=== PATIENT | male | born 1985 | race Caucasian/White ===

== ENCOUNTER 2019-12-22 11:34 | Emergency (ER) | payer BC, SELFPAY ==
[2019-12-22 11:44] VITALS: BP 146/88; PULSE 72; RESP 16; TEMP 36.7; O2SAT 99
--- NOTE | 2019-12-22 12:03 | ED.NECK ---
HPI - Neck Pain/Injury General Chief Complaint: Neck Pain/Injury Stated Complaint: pain on neck Time Seen by Provider: 12/22/19 11:49 Source: patient and RN notes reviewed Mode of arrival: ambulatory Limitations: no limitations History of Present Illness HPI Narrative: Patient presents today with a 3-day history of left neck pain. Denies any injury or recent illness. Pain is not worsening since onset. Occasionally the pain worsens with movement of the neck. He has tried no medication for symptoms prior to arrival. MD complaint: neck pain Related Data Home Medications Medication Instructions Recorded Confirmed No Home Medications 12/22/19 12/22/19 Allergies Allergy/AdvReac Type Severity Reaction Status Date / Time No Known Allergies Allergy Verified 12/22/19 11:55 Review of Systems Review of Systems: Narrative: CONSTITUTIONAL: Denies body aches, fever, chills, or sweats. EYES: Denies visual changes, redness, or discharge. ENT: Denies rhinorrhea, congestion, sore throat, or otalgia. CARDIOVASCULAR: Denies chest pain, palpitations, or edema. RESPIRATORY: Denies cough or dyspnea. GASTROINTESTINAL: Denies abdominal pain, nausea, vomiting, or diarrhea. GENITOURINARY: Denies dysuria or hematuria. SKIN: Denies rash, itching, or wounds. MUSCULOSKELETAL: Denies back pain, joint pain, or myalgia.+Left neck pain NEUROLOGIC: Denies headache, numbness, tingling, or weakness. PSYCH: Denies depression or anxiety. PMFSH Comments At time of signature, I have reviewed and agree with nursing past medical, surgical, social and family history unless otherwise noted. Please see nursing chart for further information. There is no relevant family history pertinent to the presenting complaint Exam Narrative: Exam Narrative: GENERAL: Well-appearing, well-nourished, and in no acute distress. HEAD: Normocephalic, atraumatic. EYES: EOMI. No redness or drainage. Conjunctivae normal. ENT: Mucous membranes pink and moist. Nares clear. Throat normal. Uvula midline. NECK: Normal AROM. Supple. Left anterior cervical chain lymphadenopathy and tenderness. CHEST: No respiratory distress. EXTREMITIES: Normal range of motion. No edema. SKIN: Warm, dry, no rash. Capillary refill normal. Normal skin turgor. NEURO: No focal deficits. Alert and oriented x3. Gait steady. PSYCH: Normal affect. No signs of depression or anxiety. Course Vital Signs Vital signs: Vital Signs Temperature 98.0 F 12/22/19 11:44 Pulse Rate 72 12/22/19 11:44 Respiratory Rate 16 12/22/19 11:44 Blood Pressure 146/88 H 12/22/19 11:44 Pulse Oximetry 99 12/22/19 11:44 Temperature 98.0 F 12/22/19 11:44 Pulse Rate 72 12/22/19 11:44 Respiratory Rate 16 12/22/19 11:44 Blood Pressure 146/88 H 12/22/19 11:44 Pulse Oximetry 99 12/22/19 11:44 Reviewed. Pt has been instructed to follow up with his PCP regarding his elevated blood pressure today. MDM - Neck Pain/Injury Differential Diagnosis Differential diagnosis: Likely strain of neck muscle and other (Lymphadenitis, thyroid nodule) Critical Care Time Critical Care Time Critical Care Time: No Discharge Plan Discharge Clinical Impression: Cervical lymphadenitis Patient Disposition: Home, Self-Care Condition: Stable Instructions: Lymphadenopathy (ED) Additional Instructions: You have a swollen lymph node. This will likely resolve on its own. Follow up with your PCP with any new or worsening symptoms. Take Tylenol or ibuprofen at home for pain. Your blood pressure was elevated above 120/80 today at Urgent Care. This puts you above the threshold for follow up. Please schedule a followup visit with your personal physician as soon as possible, for further evaluation and treatment. Even blood pressure exceeding 120/80 may indicate pre-hypertension. Patient Language: Faroese Prescriptions: No Action No Home Medications RF: 0 Follow-up/Referrals:
== END 2019-12-22 12:13 | disposition home or self-care (01) ==
PROVIDERS: Emergency Provider Nurse Practitioner
DX: I88.9 Nonspecific lymphadenitis, unspecified (principal)
CPT/HCPCS: 99211; G0463

== ENCOUNTER 2021-10-24 13:34 | Emergency (ER) | payer BC, SELFPAY ==
--- NOTE | 2021-10-24 13:39 | ED.HA ---
HPI - Headache General Chief Complaint: Headache Stated Complaint: Neck Pain/ Headache Time Seen by Provider: 10/24/21 13:45 Source: patient Mode of arrival: ambulatory Limitations: no limitations History of Present Illness HPI Narrative: is a 36-year-old male patient presenting to the clinic today with complaints of neck pain/ headache. He reports this only occurs when he is exerting. For example he was bench pressing and had a pressure like pain to the back of his head/top of his cervical spine. Is also reported that when he is having an orgasm he gets the same pain. He denies any other symptoms such as nausea vomiting, visual changes, chest pain, or shortness of breath. Also denies any dizziness. No history of hypertension-states he has been borderline in the past. Has taken his blood pressure after the symptoms prior and states that it was 130's over high 80s. Related Data Home Medications Medication Instructions Recorded Confirmed No Home Medications 12/22/19 12/22/19 Allergies Allergy/AdvReac Type Severity Reaction Status Date / Time No Known Allergies Allergy Verified 12/22/19 11:55 Review of Systems Review of Systems: Pertinent positives per HPI. Patient denies any fever, chills, rash, visual changes, dizziness, cough, runny nose, sore throat, shortness of breath, chest pain, palpitations, nausea, vomiting, diarrhea, constipation, abdominal pain, or any urinary issues. PMFSH Comments At the time of my signature, I reviewed and agree with the nursing past medical, surgical, social, and family history. There is no relevant family history pertinent to the patient complaint. Exam Narrative: General: Well-developed, well nourished, in no apparent distress Head: Normocephalic, atraumatic, nontender to palpation over occipital lobe, no pain to palpation over the cervical spine or musculature. Eyes: Pupils equally round and reactive to light bilaterally, EOM intact, sclera and conjunctive clear, no discharge, lids normal, tongue midline, uvula midline-even rise and fall Ears: TMs intact and clear, ear canals clear, no drainage, grossly hearing normal. Nose: Nares patent, no discharge, no inflammation, no sinus tenderness. Mouth: Oropharynx without lesions or masses, good dentition, MMM. Neck: Supple, trachea midline, no enlargement of anterior or posterior cervical nodes, no thyroid masses or goiter palpable. Cardio: Regular rate and rhythm, s1 and s2 normal, no murmur appreciated. Resp: Clear to auscultation bilaterally anteriorly and posteriorly, no rhonchi, rales, wheezing or rubs Neuro: Cranial nerves 1-12 intact, muscle strength equal and strong in all extremities, hand grasps strong bilaterally, normal steady gait, reflexes 2+ bilaterally, Romberg test negative. Course Course Emergency Course: Portions of this record may have been created with voice recognition software. Level of Care: Express Care Visit Vital Signs Vital signs: Vital signs reviewed MDM - Headache MDM Narrative Medical decision making narrative: In this case this sounds like an exertional headache or potentially a vascular headache. Patient reports that he only has the symptoms with exertion for example having orgasm or lifting heavy weights. Is neurologically intact today in the clinic and denies headache. He has a steady gait and has appropriate range of motion in all extremities. He does have some ptosis to the left eye however this is normal for him. He has strong bilateral hand grasp, negative for any extremity weakness, no facial droop, slurred speech. Differential Diagnosis Differential diagnosis: Likely migraine, tension headache and other Discharge Plan Discharge Clinical Impression: Headache Qualifiers: Headache type: primary exertional headache Qualified Code(s): G44.84 - Primary exertional headache Patient Disposition: Home, Self-Care Condition: Stable Instructions: Acute Headache (ED) Mark
[2021-10-24 13:44] VITALS: BP 134/75; PULSE 70; RESP 16; TEMP 37.2; O2SAT 100
== END 2021-10-24 13:54 | disposition home or self-care (01) ==
PROVIDERS: Emergency Provider Nurse Practitioner Family
DX: G44.84 Primary exertional headache (principal)
CPT/HCPCS: 99213; G0463

== ENCOUNTER 2022-12-19 12:34 | Emergency (ER) | payer BC, SELFPAY ==
[2022-12-19 12:42] VITALS: BP 152/84; PULSE 72; RESP 18; TEMP 36.7; O2SAT 98
--- NOTE | 2022-12-19 13:03 | ED.URI ---
HPI - URI/Sore Throat General Chief Complaint: Upper Respiratory Infection Stated Complaint: cold / chest congestion Source: patient and RN notes reviewed History of Present Illness HPI Narrative: 37 yo M presents to urgent care with complaints of a cough. Pt states last , he developed a sore throat that lasted a couple days and it resolved on its own. Pt states on Saturday, he felt terrible with congestion, bilateral ear pressure, and cough. Pt states he had body aches and lethargy. Pt states he laid in bed until today. Pt reports his congestion and most of his symptoms are improving but his boss wanted him to be checked out. Pt reports SOB due to his congestion that is improving. Reports midsternal burning a few days ago. Denies any sore throat today, ear pain, abdominal pain, or vomiting. Related Data Allergies Allergy/AdvReac Type Severity Reaction Status Date / Time No Known Allergies Allergy Verified 12/19/22 13:05 Review of Systems Review of Systems: Pertinent positives and pertinent negatives per HPI. PMFSH Comments At the time of my signature, I reviewed and agree with the nursing past medical, surgical, social, and family history. There is no relevant family history pertinent to the patient complaint. Exam Narrative: GENERAL: This is a well-nourished, well-developed patient, in no apparent distress. HEAD: normocephalic, atraumatic. EYES: Sclera clear/white. Vision is grossly intact. EARS: External ears normal, auditory canals clear and without drainage, TMs normal without perforation. Hearing grossly intact. NOSE: External nose normal with no obvious nasal discharge, nares without redness, no rhinorrhea. THROAT: Mucous membranes moist, posterior pharynx clear. NECK: Neck supple, non-tender without lymphadenopathy, masses or thyromegaly. CARDIOVASCULAR: Regular rate and rhythm without murmurs, gallops, or rubs. RESPIRATORY: Clear to auscultation. Breath sounds equal bilaterally. No wheezes, rales, or rhonchi. SKIN: warm, intact with no suspicious lesions or rash, good texture and turgor. NEURO: awake, alert, and oriented to person, place and time. There were no obvious focal neurologic abnormalities. Course Course Level of Care: Express Care Visit Vital Signs Vital signs: Vital Signs Temperature 98.1 F 12/19/22 12:42 Pulse Rate 72 12/19/22 12:42 Respiratory Rate 18 12/19/22 12:42 Blood Pressure 152/84 H 12/19/22 12:42 Pulse Oximetry 98 12/19/22 12:42 Oxygen Delivery Room Air 12/19/22 12:42 Temperature 98.1 F 12/19/22 12:42 Pulse Rate 72 12/19/22 12:42 Respiratory Rate 18 12/19/22 12:42 Blood Pressure 152/84 H 12/19/22 12:42 Pulse Oximetry 98 12/19/22 12:42 Oxygen Delivery Room Air 12/19/22 12:42 Reviewed MDM - URI/Sore Throat MDM Narrative Medical decision making narrative: Increase fluids at home. Avoid any and all smoke. May use a humidifier in the bedroom. Increase your Vitamin C. Follow-up with personal physician in 2-5 days. Differential Diagnosis Differential diagnosis: Likely upper respiratory infection, otitis media, viral infection and bronchitis Critical Care Time Critical Care Time Critical Care Time: No Discharge Plan Discharge Clinical Impression: Viral infection, Bronchitis Patient Disposition: Home, Self-Care Condition: Stable Instructions: Acute Bronchitis (ED) Additional Instructions: Increase fluids at home. Avoid any and all smoke. May use a humidifier in the bedroom. Increase your Vitamin C. Follow-up with personal physician in 2-5 days. Prescriptions: New benzonatate 200 mg capsule 200 mg PO TID PRN (Reason: cough) Qty: 20 0RF Follow-up/Referrals: PHYSICIAN,SHEAR OPERATOR [Primary Care Provider] - Time of Disposition: 13:10
== END 2022-12-19 13:12 | disposition home or self-care (01) ==
PROVIDERS: Emergency Provider Nurse Practitioner Family
DX: B34.9 Viral infection, unspecified (principal); J40 Bronchitis, not specified as acute or chronic
CPT/HCPCS: 99213; G0463

== ENCOUNTER 2023-07-07 10:42 | Emergency (ER) | payer BC, SELFPAY ==
[2023-07-07 10:52] VITALS: BP 156/101; PULSE 83; RESP 16; TEMP 37.1; O2SAT 100
--- NOTE | 2023-07-07 11:12 | ED.SKABFB ---
HPI - Skin/Abscess/Foreign Bdy General Chief complaint: Skin/Abscess/Foreign Body Stated complaint: poison sandra Time Seen by Provider: 07/07/23 11:06 Source: patient and RN notes reviewed Mode of arrival: ambulatory Limitations: no limitations History of Present Illness HPI narrative: Patient presents today complaining of poison sandra to the dorsum of both hands x3 days. Believes he contracted [place] in [place]. He has been using calamine lotion without relief and believes it is continuing to spread. Son also contracted at the same time. Related Data Allergies Allergy/AdvReac Type Severity Reaction Status Date / Time No Known Allergies Allergy Verified 07/07/23 11:03 Review of Systems Review of Systems: CONSTITUTIONAL: Denies body aches, fever, chills, or sweats. EYES: Denies visual changes, redness, or discharge. ENT: Denies rhinorrhea, congestion, sore throat, or otalgia. CARDIOVASCULAR: Denies chest pain, palpitations, or edema. RESPIRATORY: Denies cough or dyspnea. GASTROINTESTINAL: Denies abdominal pain, nausea, vomiting, or diarrhea. GENITOURINARY: Denies dysuria or hematuria. SKIN: + pruritic rash MUSCULOSKELETAL: Denies back pain, joint pain, or myalgia. NEUROLOGIC: Denies headache, numbness, tingling, or weakness. PSYCH: Denies depression or anxiety. PMFSH Comments At time of signature, I have reviewed and agree with nursing past medical, surgical, social and family history unless otherwise noted. Please see nursing chart for further information. There is no relevant family history pertinent to the presenting complaint Exam Narrative: GENERAL: Well-appearing, well-nourished, and in no acute distress. HEAD: Normocephalic, atraumatic. EYES: EOMI. No redness or drainage. Conjunctivae normal. ENT: Mucous membranes pink and moist. NECK: Normal AROM. CHEST: No respiratory distress. EXTREMITIES: Normal range of motion. No edema. SKIN: Warm, dry. Capillary refill normal. Normal skin turgor. Scattered erythematous papules to the bilateral dorsums of the hands and between the fingers. NEURO: No focal deficits. Alert and oriented x3. Gait steady. PSYCH: Normal affect. No signs of depression or anxiety. Course Course Level of Care: Express Care Visit Vital Signs Vital signs: Vital Signs Temperature 98.8 F 11/19/23 10:52 Pulse Rate 83 07/07/23 10:52 Respiratory Rate 16 07/07/23 10:52 Blood Pressure 156/101 H 07/07/23 10:52 Pulse Oximetry 100 07/07/23 10:52 Temperature 98.8 F 07/07/23 10:52 Pulse Rate 83 07/07/23 10:52 Respiratory Rate 16 07/07/23 10:52 Blood Pressure 156/101 H 07/07/23 10:52 Pulse Oximetry 100 07/07/23 10:52 Reviewed MDM - Skin/Abscess/Foreign Bdy MDM Narrative Medical decision making narrative: Exam is consistent with poison sandra. Will start patient on a course of prednisone. Discussed [id number] antihistamines as well. Anticipatory guidance given. Differential Diagnosis Differential diagnosis: Likely viral exanthem, urticaria, cellulitis, eczema, insect bites and contact dermatitis Critical Care Time Critical Care Time Critical Care Time: No Discharge Plan Discharge Clinical Impression: Poison sandra dermatitis Patient Disposition: Home, Self-Care Condition: Stable Instructions: Poison Sandra (ED) Additional Instructions: Take the prednisone as directed. For itching, you may take an antihistamine such as Zyrtec, Claritin, Benadryl, or Luz. Follow-up with your PCP in 3-4 days if symptoms are not improving. Your blood pressure was elevated above 120/80 today at Urgent Care. This puts you above the threshold for follow up. Please schedule a followup visit with your personal physician as soon as possible, for further evaluation and treatment. Even blood pressure exceeding 120/80 may indicate pre-hypertension. Prescriptions: New prednisone 10 mg tablet See Rx Instructions
== END 2023-07-07 11:19 | disposition home or self-care (01) ==
PROVIDERS: Emergency Provider Nurse Practitioner
DX: L23.7 Allergic contact dermatitis due to plants, except food (principal)
CPT/HCPCS: 99213; G0463

== ENCOUNTER 2025-07-12 11:25 | Emergency (ER) | payer BC, SELFPAY ==
[2025-07-12 11:28] VITALS: BP 135/88; PULSE 102; RESP 20; TEMP 36.8; O2SAT 97
--- NOTE | 2025-07-12 11:39 | ED_ITS ---
HPI - Extremity Injury (Lower) General Chief Complaint: Extremity Injury, Lower Stated Complaint: left leg pain Time Seen by Provider: 07/12/25 11:31 Source: patient Mode of arrival: ambulatory Limitations: no limitations History of Present Illness HPI Narrative: 40 years old white male, playing basketball last night, felt sharp stabbing pain at the left calf muscle, pop feeling, pain worse with weight on Grey. He denies other injuries Related Data Home Medications ?Medication ?Instructions ?Recorded ?Confirmed ?Last Taken ?Type No Home Medications 07/12/25 07/12/25 U nknown History Allergies Allergy/AdvReac Type Severity Reaction Status Date / Time No Known Allergies Allergy Verified 07/12/25 11:33 Review of Systems Review of Systems: All systems reviewed & are unremarkable except as noted in HPI and below Exam Narrative: General appearance: Well-developed, well-nourished Skin: Normal color Head: Normocephalic, nontraumatic Eyes: Clear conjunctiva ENT: Oropharynx normal, ears normal, nose normal Neck: Supple, nontender Chest and respiratory: Airway patent, no respiratory distress, no accessory muscle use Heart: Regular rate/rhythm Abdomen: Soft, nontender, no organomegaly, quiet bowel sounds Vascular: Normal peripheral pulses, normal capillary refill. Musculoskeletal: Left calf muscle showed slight diffuse tenderness, no bruises, no swelling, negative Sim test left foot showed plantar flex with calf muscle squeeze. Neurologic: Alert and oriented ?3, [employer] is normal as tested, no gross motor deficit Course Vital Signs Vital signs: Vital Signs Temperature 36.8 C 07/12/25 11:28 Pulse Rate 102 H 07/12/25 11:28 Respiratory Rate 20 07/12/25 11:28 Blood Pressure 135/88 07/12/25 11:28 Pulse Oximetry 97 07/12/25 11:28 Oxygen Delivery Room Air 07/12/25 11:28 Temperature 36.8 C 07/12/25 11:28 Pulse Rate 102 H 07/12/25 11:28 Respiratory Rate 20 07/12/25 11:28 Blood Pressure 135/88 07/12/25 11:28 Pulse Oximetry 97 07/12/25 11:28 Oxygen Delivery Room Air 07/12/25 11:28 MDM - Extremity Injury (Lower) MDM Narrative Medical decision making narrative: Muscle strain/sprain, negative Sim test. Differential Diagnosis Differential diagnosis: Likely other (As above) Critical Care Time Critical Care Time Critical Care Time: No Discharge Plan Discharge Clinical Impression: Leg strain Patient Disposition: Home Condition: Stable Instructions: Leg Sprain (ED) Additional Instructions: Return if symptoms are worsening , call your family physician for appointment, take Tylenol ibuprofen as as needed for aches and pain, continue home medications., keep leg elevated, crutches as needed, ice pack 20 minutes/hour for the next 24 hours, Patient Language: Hungarian Prescriptions: No Action No Home Medications Follow-up/Referrals: Tanvi Solorio MD [Physician, Internal Medicine]
--- OUTSIDE RECORDS SUMMARY | 2025-07-12 13:37 | XMS_ITS ---
Author Organization Unknown ENCOUNTERS Encounter Performer Location Date Diagnosis [place] [address] [id number] [place] [address] [id number] DEJA *Note: Encounters from your own facility or health system may be excluded. Allergies, Adverse Reactions, Alerts Allergen Type Severity Identification Date Medications Name Date Quantity Days Supplied GPI Number
--- OUTSIDE RECORDS SUMMARY | 2025-07-12 13:37 | XMS_ITS | Clinical Summary ---
Author Organization [facility] Address [address] [place] [address] Care Team Providers Care Art Educator Name Role Phone Unavailable Primary Care Provider Unavailabl e Allergies No known active allergies Medications ibuprofen (ADVIL;MOTRIN) 100 mg/5 mL suspension Take by mouth every 6 hours as needed for Pain, Mild. Active Active Problems Problem Noted Date Diagnosed Date Cervical strain 01/31/2015 Muscle strain, shoulder region 01/31/2015 Thoracic myofascial strain 01/31/2015 Social History Tobacco Use Types Packs/Day Years Used Date Smoking Tobacco: Never Alcohol Use Standard Drinks/Week Comments No 0 (1 standard drink = 0.6 oz pur e alcohol) Sex and Gender Information Value Date Recorded Sex Assigned at Not on file Legal Sex Male 10:24 AM CDT Gender Identity Not on file Sexual Orientation Not on file Last Filed Vital Signs Vital Sign Reading Time Taken Comments Blood Pressure 120/60 01/31/2015 8:21 AM CDT Pulse 64 01/31/2015 8:21 AM CDT Temperature - - Respiratory Rate - - Oxygen Saturation - - Inhaled Oxygen Concentration - - Weight 83.9 kg (185 lb) 01/31/2015 8:21 AM CDT Height 188 cm (6' 2) 01/31/2015 8:21 AM CDT Body Mass Index 23.75 01/31/2015 8:21 AM CDT Plan of Treatment Health Maintenance Due Date Last Done Comments DTAP/TDAP/TD VACCINES (1 - Tdap) 2004 HEPATITIS B VACCINES (1 of 3 - 19+ 3-dose series) 04/19 HPV VACCINES (1 - 3-dose SCDM series) 2012 INFLUENZA VACCINE (#1) 2025
== END 2025-07-12 11:50 | disposition home or self-care (01) ==
LOC: CHSED 11:46
PROVIDERS: Emergency Provider Emergency Medicine; Referring Provider Internal Medicine
DX: S86.912A Strain of unspecified muscle(s) and tendon(s) at lower leg level, left leg, initial encounter (principal); X58.XXXA Exposure to other specified factors, initial encounter; Y93.67 Activity, basketball
CPT/HCPCS: 99282